=== PATIENT | female | born 1940 | race Caucasian/White ===

== ENCOUNTER 2018-06-14 17:30 | Inpatient (IN) | payer OTHER ==
[~2018-06-14] VITALS: Ht 160 cm; Wt 85.8 kg
[2018-06-14 17:53] LABS: HEMOGLOBIN 13.1 G/DL (11.9-15.5); MCH 27.9 PG (29.0-34.0); MCHC 33.6 G/DL (30.0-36.0); PLATELET COUNT 379 K/uL (156-360); RBC DIS.WIDTH-CV 15.8 % (11.8-14.6); RBC DIS.WIDTH-SD 47.7 % (39-53); WHITE BLOOD COUNT 11.2 K/uL (4.1-10.2)
[2018-06-14 18:02] LABS: ALBUMIN 3.6 g/dL (3.2-4.8)
[2018-06-14 18:03] LABS: CHLORIDE 99 mEq/L (99-109); POTASSIUM 3.4 mEq/L (3.7-5.4); SODIUM 137 mEq/L (136-147)
[2018-06-14 18:05] LABS: GLUCOSE 122 mg/dL (70-99)
[2018-06-14 18:07] LABS: TOTAL BILIRUBIN 2.2 mg/dL (0.0-1.0)
[2018-06-14 18:08] LABS: ALKALINE PHOSPHATASE 89 IU/L (3-129)
[2018-06-14 18:09] LABS: CREATININE 1.3 mg/dL (0.6-1.3); GFR ESTIMATE (CALCULATED) 42 mL/min/
[2018-06-14 18:10] LABS: AST (GOT) 32 IU/L (2-34); UREA NITROGEN (BUN) 31 mg/dL (9-23)
[2018-06-14 18:12] LABS: ALT (GPT) 70 IU/L (3-49); LIPASE 25 U/L (1.0-51.0)
[2018-06-14] MEDS ORDERED: ROSUVASTATIN CA10 MG PO (19:56)
[2018-06-14] MEDS ORDERED: DULOXETINE HCL60 MG PO (19:57)
[2018-06-14] MEDS ORDERED: ALENDRONATE SOD70 MG PO (19:58)
[2018-06-14] MEDS ORDERED: ALLOPURINOL100 MG PO (19:58)
[2018-06-14] MEDS ORDERED: LEVOTHYROXINE75 MCG PO (19:59)
[2018-06-14] MEDS ORDERED: LISINOPRIL40 MG PO (20:00)
[2018-06-14] MEDS ORDERED: VITAMIN D31000 UNI2 PO (20:01)
[2018-06-14] MEDS ORDERED: DICLOFENAC SODI75 MG PO (20:01)
[2018-06-14] MEDS ORDERED: LO-DOSE ASPIRIN81 M2 PO (20:02)
[2018-06-14 20:03] LABS: INTER. NORMALIZED RATIO 1.1
[2018-06-14 20:06] LABS: PTT 27.6 SEC (25-37)
[2018-06-15] VITALS (70 sets, daily range): BP systolic 65–138; BP diastolic 44–78
[2018-06-15 01:25] LABS: APPEARANCE SL.HAZY ((CLEAR)); BILIRUBIN NEGATIVE; BLOOD MODERATE; COLOR YELLOW ((YELLOW)); GLUCOSE (STRIP) NEGATIVE; KETONES 5; LEUKOCYTES NEGATIVE; NITRITE NEGATIVE; PROTEIN (STRIP) 100; UROBILINOGEN 0.2 MG/DL (0.2-1.0)
[2018-06-15 01:37] LABS: SPECIFIC GRAVITY > 1.060 (1.000-1.030)
[2018-06-15 01:46] LABS: BACTERIA RARE /HPF; EPITHELIAL CELLS 1+ /HPF; MUCUS TRACE /LPF; RED BLOOD CELLS 15-20 /HPF (0-5); WHITE BLOOD CELLS 0-5 /HPF (0-5)
[2018-06-15 02:30] LABS: COMMENTS - BLOOD GASES C+; DEVICE VENT; FI02 100 %; MECHANICAL RATE 12 resp/min; MODE AC; PEEP 5 CM/H20; SITE RR; TIDAL VOLUME 450 ML; TOTAL RESP RATE 12 resp/min
[2018-06-15 02:31] LABS: BASE EXCESS -5.1 mEq/L (-3 to +3); BICARBONATE 19.9 mEq/L (22-26); METHEMOGLOBIN 1.1 % (0-1.5); O2 SATURATION (CALCULATED) 97.3 % (95-99); PCO2 36 mm Hg (35-45); PO2 429 mm Hg (80-100); pH 7.35 (7.35-7.45)
[2018-06-15 02:32] LABS: HEMOGLOBIN 11.9 G/DL (11.9-15.5); MCH 27.8 PG (29.0-34.0); MCHC 33.1 G/DL (30.0-36.0); MCV 84.1 FL (83-99); PLATELET COUNT 266 K/uL (156-360); RBC DIS.WIDTH-CV 15.9 % (11.8-14.6); RBC DIS.WIDTH-SD 49.1 % (39-53); RED BLOOD COUNT 4.28 M/uL (3.80-5.20); WHITE BLOOD COUNT 9.2 K/uL (4.1-10.2)
[2018-06-15 03:11] LABS: POTASSIUM 3.8 mEq/L (3.7-5.4); SODIUM 138 mEq/L (136-147)
[2018-06-15 03:13] LABS: GLUCOSE 115 mg/dL (70-99)
[2018-06-15 03:17] LABS: CREATININE 0.9 mg/dL (0.6-1.3); GFR ESTIMATE (CALCULATED) > 59 mL/min/
[2018-06-15 03:18] LABS: CHLORIDE 109 mEq/L (99-109); UREA NITROGEN (BUN) 26 mg/dL (9-23)
[2018-06-15 05:58] LABS: ALBUMIN 2.3 G/DL (3.2-4.8); ALKALINE PHOSPHATASE 41 IU/L (3-129); ALT (GPT) 41 IU/L (3-49); AST (GOT) 48 IU/L (2-34); CHLORIDE 107 MEQ/L (99-109); CREATININE 0.9 MG/DL (0.6-1.3); GFR ESTIMATE (CALCULATED) > 59 mL/min/; GLUCOSE 123 mg/dL (70-99); MAGNESIUM 1.5 mg/dl (1.3-2.7); PHOSPHORUS 3.1 mg/dL (2.5-4.9); POTASSIUM 3.9 MEQ/L (3.7-5.4); SODIUM 137 MEQ/L (136-147); TOTAL BILIRUBIN 2.5 MG/DL (0.0-1.0); TOTAL PROTEIN 4.6 G/DL (6.4-8.3); UREA NITROGEN (BUN) 25 mg/dL (9-23)
[2018-06-15 06:27] LABS: HEMATOCRIT 35.9 % (36.0-46.0); HEMOGLOBIN 11.3 G/DL (11.9-15.5); MCH 27.1 PG (29.0-34.0); MCHC 31.5 G/DL (30.0-36.0); MCV 86.1 FL (83-99); RBC DIS.WIDTH-CV 16.1 % (11.8-14.6); RBC DIS.WIDTH-SD 50.5 % (39-53); RED BLOOD COUNT 4.17 M/uL (3.80-5.20)
[2018-06-15 07:30] LABS: ABS NEUTROPHIL COUNT 10.6; ANISOCYTOSIS 1+; BAND NEUTROPHILS 36.8 % (0-8.0); BURR CELLS 3+; EOSINOPHIL ABS CT 0; LYMPHOCYTES 7.9 % (15.0-45.0); METAMYELOCYTES 0.9 %; MONOCYTES 9.7 % (0-9.0); PLAT.SUFFICIENCY ADEQUATE; PLATELET COUNT 324 K/uL (156-360); POIKILOCYTOSIS 3+; SEG.NEUTROPHILS 44.7 % (46.0-76.0)
[2018-06-15 09:38] LABS: HEMATOCRIT 28.9 % (36.0-46.0); MCH 27.7 PG (29.0-34.0); MCHC 32.2 G/DL (30.0-36.0); PLATELET COUNT 238 K/uL (156-360); RBC DIS.WIDTH-CV 15.9 % (11.8-14.6); RBC DIS.WIDTH-SD 49.8 % (39-53); RED BLOOD COUNT 3.36 M/uL (3.80-5.20); WHITE BLOOD COUNT 11.5 K/uL (4.1-10.2)
[2018-06-15 09:39] LABS: HEMOGLOBIN 9.3 G/DL (11.9-15.5)
[2018-06-15 09:53] LABS: ABS NEUTROPHIL COUNT 8.7; ANISOCYTOSIS 1+; BAND NEUTROPHILS 21.7 % (0-8.0); BURR CELLS 2+; EOSINOPHIL ABS CT 0; LYMPHOCYTES 12.2 % (15.0-45.0); MACROCYTES 1+; MICROCYTOSIS 1+; MONOCYTES 5.2 % (0-9.0); OVALOCYTES 2+; PLAT.SUFFICIENCY ADEQUATE; POIKILOCYTOSIS 3+; SEG.NEUTROPHILS 53.9 % (46.0-76.0)
[2018-06-15 15:00] LABS: HEMATOCRIT 29.9 % (36.0-46.0); HEMOGLOBIN 9.7 G/DL (11.9-15.5); MCV 85.2 FL (83-99)
[2018-06-16] VITALS (22 sets, daily range): BP systolic 100–146; BP diastolic 57–94
[2018-06-16 00:38] LABS: HEMATOCRIT 30.4 % (36.0-46.0); MCH 27.5 PG (29.0-34.0); MCHC 32.9 G/DL (30.0-36.0); MCV 83.7 FL (83-99); PLATELET COUNT 303 K/uL (156-360); RBC DIS.WIDTH-CV 16.2 % (11.8-14.6); RBC DIS.WIDTH-SD 49.9 % (39-53); RED BLOOD COUNT 3.63 M/uL (3.80-5.20); WHITE BLOOD COUNT 17.5 K/uL (4.1-10.2)
[2018-06-16 06:10] LABS: HEMATOCRIT 34.1 % (36.0-46.0); HEMOGLOBIN 10.7 G/DL (11.9-15.5); MCH 27.3 PG (29.0-34.0); MCHC 31.4 G/DL (30.0-36.0); PLATELET COUNT 349 K/uL (156-360); RBC DIS.WIDTH-CV 16.3 % (11.8-14.6); RBC DIS.WIDTH-SD 52.5 % (39-53); RED BLOOD COUNT 3.92 M/uL (3.80-5.20); WHITE BLOOD COUNT 18.9 K/uL (4.1-10.2)
[2018-06-16 06:52] LABS: ALBUMIN 2.2 G/DL (3.2-4.8); ALKALINE PHOSPHATASE 50 IU/L (3-129); ALT (GPT) 33 IU/L (3-49); AST (GOT) 35 IU/L (2-34); CHLORIDE 106 MEQ/L (99-109); CREATININE 0.9 MG/DL (0.6-1.3); GFR ESTIMATE (CALCULATED) > 59 mL/min/; GLUCOSE 97 mg/dL (70-99); POTASSIUM 4.2 MEQ/L (3.7-5.4); SODIUM 141 MEQ/L (136-147); TOTAL PROTEIN 4.1 G/DL (6.4-8.3); UREA NITROGEN (BUN) 21 mg/dL (9-23)
[2018-06-16 06:53] LABS: CHLORIDE 106 MEQ/L (99-109); CREATININE 0.9 MG/DL (0.6-1.3); GFR ESTIMATE (CALCULATED) > 59 mL/min/; GLUCOSE 93 mg/dL (70-99); PHOSPHORUS 3.2 mg/dL (2.5-4.9); SODIUM 141 MEQ/L (136-147); UREA NITROGEN (BUN) 21 mg/dL (9-23)
[2018-06-16 07:01] LABS: TOTAL BILIRUBIN 3.1 MG/DL (0.0-1.0)
[2018-06-16 07:02] LABS: MAGNESIUM 2.2 mg/dl (1.3-2.7)
[2018-06-16 07:08] LABS: ABS NEUTROPHIL COUNT 13.8; ANISOCYTOSIS 1+; ATYPICAL LYMPHOCYTE 1.7 %; BAND NEUTROPHILS 20.9 % (0-8.0); BURR CELLS 1+; EOSINOPHIL ABS CT 0; LYMPHOCYTES 9.6 % (15.0-45.0); MONOCYTES 9.6 % (0-9.0); OVALOCYTES 1+; PLAT.SUFFICIENCY ADEQUATE; POIKILOCYTOSIS 1+; POLYCHROMASIA 1+; SEG.NEUTROPHILS 58.2 % (46.0-76.0)
[2018-06-16 07:29] LABS: ABS NEUTROPHIL COUNT 16.6; ANISOCYTOSIS 2+; BAND NEUTROPHILS 24.6 % (0-8.0); BURR CELLS 1+; EOSINOPHIL ABS CT 0; LYMPHOCYTES 5.3 % (15.0-45.0); MACROCYTES 1+; METAMYELOCYTES 0.9 %; MONOCYTES 6.1 % (0-9.0); OVALOCYTES 1+; PLAT.SUFFICIENCY INCREASED; POIKILOCYTOSIS 3+; POLYCHROMASIA 1+; SEG.NEUTROPHILS 63.1 % (46.0-76.0)
[2018-06-17 02:15] VITALS: BP 132/70
[2018-06-17 05:36] LABS: HEMATOCRIT 29.8 % (36.0-46.0); HEMOGLOBIN 9.3 G/DL (11.9-15.5); MCHC 31.2 G/DL (30.0-36.0); MCV 86.6 FL (83-99); PLATELET COUNT 354 K/uL (156-360); RBC DIS.WIDTH-CV 16.5 % (11.8-14.6); RBC DIS.WIDTH-SD 51.4 % (39-53); RED BLOOD COUNT 3.44 M/uL (3.80-5.20); WHITE BLOOD COUNT 19.1 K/uL (4.1-10.2)
[2018-06-17 06:16] LABS: CHLORIDE 107 MEQ/L (99-109); CREATININE 0.8 MG/DL (0.6-1.3); GFR ESTIMATE (CALCULATED) > 59 mL/min/; GLUCOSE 66 mg/dL (70-99); MAGNESIUM 2.1 mg/dl (1.3-2.7); POTASSIUM 3.5 MEQ/L (3.7-5.4); SODIUM 140 MEQ/L (136-147); UREA NITROGEN (BUN) 20 mg/dL (9-23)
[2018-06-17 07:01] LABS: ABS NEUTROPHIL COUNT 16.3; ANISOCYTOSIS 1+; BURR CELLS 3+; EOSINOPHIL ABS CT 0; LYMPHOCYTES 8.7 % (15.0-45.0); MONOCYTES 6.1 % (0-9.0); OVALOCYTES 1+; PLAT.SUFFICIENCY ADEQUATE; POIKILOCYTOSIS 3+
[2018-06-17 07:16] LABS: SEG.NEUTROPHILS 85.2 % (46.0-76.0)
[2018-06-17 08:40] VITALS: BP 174/86
[2018-06-17 08:58] LABS: ALBUMIN 2.2 G/DL (3.2-4.8); ALKALINE PHOSPHATASE 67 IU/L (3-129); ALT (GPT) 28 IU/L (3-49); AST (GOT) 32 IU/L (2-34); DIRECT BILIRUBIN 2.2 mg/dL (0.0-0.3); TOTAL BILIRUBIN 3.1 MG/DL (0.0-1.0); TOTAL PROTEIN 4.5 G/DL (6.4-8.3)
[2018-06-17 11:38] VITALS: BP 178/92
[2018-06-17 15:29] VITALS: BP 142/78
[2018-06-17 19:00] VITALS: BP 153/71
[2018-06-17 23:00] VITALS: BP 149/67
[2018-06-18 03:30] VITALS: BP 145/76
[2018-06-18 05:42] LABS: BASOPHIL (%) 0.5 % (0-1); BASOPHIL COUNT 0.1 K/uL (0-0.1); EOSINOPHIL (%) 0.3 % (0-5); EOSINOPHIL COUNT 0.1 K/uL (0-0.3); HEMATOCRIT 29.6 % (36.0-46.0); HEMOGLOBIN 9.5 G/DL (11.9-15.5); IMMATURE GRANULOCYTE (%) 4.4 % (0.0-0.7); LYMPHOCYTE (%) 9.5 % (15-42); LYMPHOCYTE COUNT 1.7 K/uL (1.0-2.8); MCH 27.2 PG (29.0-34.0); MCHC 32.1 G/DL (30.0-36.0); MCV 84.8 FL (83-99); MONOCYTE (%) 7.3 % (3-12); MONOCYTE COUNT 1.3 K/uL (0-0.8); NEUTROPHIL COUNT 13.6 K/uL (1.8-6.4); PLATELET COUNT 380 K/uL (156-360); RBC DIS.WIDTH-CV 16.5 % (11.8-14.6); RBC DIS.WIDTH-SD 51.4 % (39-53); RED BLOOD COUNT 3.49 M/uL (3.80-5.20); WHITE BLOOD COUNT 17.5 K/uL (4.1-10.2)
[2018-06-18 06:07] LABS: MAGNESIUM 2.1 mg/dl (1.3-2.7); PHOSPHORUS 1.8 mg/dL (2.5-4.9)
[2018-06-18 06:24] LABS: ALBUMIN 2.2 G/DL (3.2-4.8); ALKALINE PHOSPHATASE 73 IU/L (3-129); ALT (GPT) 25 IU/L (3-49); AST (GOT) 31 IU/L (2-34); CHLORIDE 107 MEQ/L (99-109); CREATININE 0.7 MG/DL (0.6-1.3); GFR ESTIMATE (CALCULATED) > 59 mL/min/; POTASSIUM 3.4 MEQ/L (3.7-5.4); SODIUM 143 MEQ/L (136-147); TOTAL BILIRUBIN 3.5 MG/DL (0.0-1.0); TOTAL PROTEIN 4.6 G/DL (6.4-8.3); UREA NITROGEN (BUN) 18 mg/dL (9-23)
[2018-06-18 06:30] LABS: GLUCOSE 99 mg/dL (70-99)
[2018-06-18 07:13] VITALS: BP 169/82
[2018-06-18 09:44] VITALS: BP 142/68
[2018-06-18 10:59] VITALS: BP 144/80
[2018-06-18 14:45] VITALS: BP 154/84
[2018-06-18 21:00] VITALS: BP 190/82
[2018-06-19 02:03] VITALS: BP 163/82
[2018-06-19 06:16] VITALS: BP 95/58
[2018-06-19 06:32] LABS: HEMATOCRIT 30.6 % (36.0-46.0); HEMOGLOBIN 9.9 G/DL (11.9-15.5); MCH 26.8 PG (29.0-34.0); MCHC 32.4 G/DL (30.0-36.0); MCV 82.9 FL (83-99); PLATELET COUNT 440 K/uL (156-360); RBC DIS.WIDTH-CV 16.5 % (11.8-14.6); RBC DIS.WIDTH-SD 50.1 % (39-53); RED BLOOD COUNT 3.69 M/uL (3.80-5.20); WHITE BLOOD COUNT 16.7 K/uL (4.1-10.2)
[2018-06-19 06:55] LABS: ALBUMIN 2.2 G/DL (3.2-4.8); ALKALINE PHOSPHATASE 83 IU/L (3-129); ALT (GPT) 24 IU/L (3-49); AST (GOT) 31 IU/L (2-34); CHLORIDE 108 MEQ/L (99-109); CREATININE 0.7 MG/DL (0.6-1.3); GFR ESTIMATE (CALCULATED) > 59 mL/min/; GLUCOSE 124 mg/dL (70-99); POTASSIUM 3.5 MEQ/L (3.7-5.4); SODIUM 145 MEQ/L (136-147); TOTAL BILIRUBIN 3.5 MG/DL (0.0-1.0); TOTAL PROTEIN 4.2 G/DL (6.4-8.3); UREA NITROGEN (BUN) 18 mg/dL (9-23)
[2018-06-19 06:55] LABS: MAGNESIUM 1.9 mg/dl (1.3-2.7); PHOSPHORUS 1.5 mg/dL (2.5-4.9)
[2018-06-19 07:56] LABS: ABS NEUTROPHIL COUNT 14.4; ANISOCYTOSIS 1+; ATYPICAL LYMPHOCYTE 0.9 %; BASOPHILS 1.7 %; BURR CELLS 1+; EOSINOPHIL ABS CT 0; LYMPHOCYTES 3.5 % (15.0-45.0); MACROCYTES 1+; MONOCYTES 7.8 % (0-9.0); PLAT.SUFFICIENCY INCREASED; POIKILOCYTOSIS 1+; SEG.NEUTROPHILS 86.1 % (46.0-76.0); SMUDGE CELLS 4.3; TARGET CELLS 1+
[2018-06-19 09:46] VITALS: BP 178/76
[2018-06-19 11:49] VITALS: BP 178/77
[2018-06-19 15:25] VITALS: BP 169/77
[2018-06-19 21:00] VITALS: BP 150/86
[2018-06-20] VITALS (7 sets, daily range): BP systolic 142–196; BP diastolic 76–98
[2018-06-20 05:52] LABS: ALBUMIN 2.2 G/DL (3.2-4.8); ALKALINE PHOSPHATASE 74 IU/L (3-129); ALT (GPT) 24 IU/L (3-49); AST (GOT) 31 IU/L (2-34); CHLORIDE 106 MEQ/L (99-109); CREATININE 0.6 MG/DL (0.6-1.3); GFR ESTIMATE (CALCULATED) > 59 mL/min/; GLUCOSE 115 mg/dL (70-99); POTASSIUM 3.5 MEQ/L (3.7-5.4); SODIUM 144 MEQ/L (136-147); TOTAL PROTEIN 4.2 G/DL (6.4-8.3); UREA NITROGEN (BUN) 15 mg/dL (9-23)
[2018-06-21] VITALS (7 sets, daily range): BP systolic 137–164; BP diastolic 67–88
[2018-06-21 05:32] LABS: HEMATOCRIT 28.8 % (36.0-46.0); HEMOGLOBIN 9.7 G/DL (11.9-15.5); MCHC 33.7 G/DL (30.0-36.0); MCV 80.2 FL (83-99); PLATELET COUNT 416 K/uL (156-360); RBC DIS.WIDTH-CV 16.3 % (11.8-14.6); RED BLOOD COUNT 3.59 M/uL (3.80-5.20); WHITE BLOOD COUNT 13.8 K/uL (4.1-10.2)
[2018-06-21 06:09] LABS: ALBUMIN 2.3 G/DL (3.2-4.8); ALKALINE PHOSPHATASE 75 IU/L (3-129); ALT (GPT) 22 IU/L (3-49); AST (GOT) 28 IU/L (2-34); CHLORIDE 105 MEQ/L (99-109); CREATININE 0.5 MG/DL (0.6-1.3); GFR ESTIMATE (CALCULATED) > 59 mL/min/; GLUCOSE 143 mg/dL (70-99); POTASSIUM 3.3 MEQ/L (3.7-5.4); SODIUM 140 MEQ/L (136-147); TOTAL PROTEIN 4.5 G/DL (6.4-8.3); UREA NITROGEN (BUN) 12 mg/dL (9-23)
[2018-06-21 06:12] LABS: TOTAL BILIRUBIN 2.2 MG/DL (0.0-1.0)
[2018-06-21 08:39] LABS: ABS NEUTROPHIL COUNT 11.1; ANISOCYTOSIS 1+; ATYPICAL LYMPHOCYTE 4.4 %; BAND NEUTROPHILS 5.3 % (0-8.0); BASOPHILS 1.7 %; EOSINOPHIL ABS CT 0; HYPOCHROMASIA 2+; LYMPHOCYTES 7.9 % (15.0-45.0); MACROCYTES 1+; MONOCYTES 5.3 % (0-9.0); OVALOCYTES 1+; PLAT.SUFFICIENCY INCREASED; POIKILOCYTOSIS 1+; SEG.NEUTROPHILS 75.4 % (46.0-76.0)
[2018-06-22 02:51] VITALS: BP 166/74
[2018-06-22 05:15] LABS: HEMATOCRIT 30.1 % (36.0-46.0); HEMOGLOBIN 10.1 G/DL (11.9-15.5); MCH 26.8 PG (29.0-34.0); MCHC 33.6 G/DL (30.0-36.0); MCV 79.8 FL (83-99); PLATELET COUNT 410 K/uL (156-360); RBC DIS.WIDTH-CV 16.6 % (11.8-14.6); RBC DIS.WIDTH-SD 46.5 % (39-53); RED BLOOD COUNT 3.77 M/uL (3.80-5.20); WHITE BLOOD COUNT 13.8 K/uL (4.1-10.2)
[2018-06-22 06:03] LABS: ALBUMIN 2.2 G/DL (3.2-4.8); ALKALINE PHOSPHATASE 86 IU/L (3-129); ALT (GPT) 23 IU/L (3-49); AST (GOT) 29 IU/L (2-34); CHLORIDE 104 MEQ/L (99-109); CREATININE 0.6 MG/DL (0.6-1.3); GFR ESTIMATE (CALCULATED) > 59 mL/min/; GLUCOSE 115 mg/dL (70-99); POTASSIUM 3.3 MEQ/L (3.7-5.4); SODIUM 141 MEQ/L (136-147); TOTAL BILIRUBIN 1.9 MG/DL (0.0-1.0); TOTAL PROTEIN 4.2 G/DL (6.4-8.3); UREA NITROGEN (BUN) 12 mg/dL (9-23)
[2018-06-22 07:18] LABS: ABS NEUTROPHIL COUNT 11.4; ANISOCYTOSIS 1+; EOSINOPHIL ABS CT 0.2; EOSINOPHILS 1.8 % (0-5.0); HYPOCHROMASIA 1+; LYMPHOCYTES 12.4 % (15.0-45.0); METAMYELOCYTES 0.9 %; MICROCYTOSIS 1+; MONOCYTES 2.6 % (0-9.0); PLAT.SUFFICIENCY INCREASED; POIKILOCYTOSIS 2+; SEG.NEUTROPHILS 82.3 % (46.0-76.0); SMUDGE CELLS 13.3
[2018-06-22 08:03] VITALS: BP 137/83
[2018-06-22] MEDS ORDERED: PROTONIX40 MG PO (11:13)
[2018-06-22] MEDS ORDERED: NIFEREX-150,FE150 MG PO (11:13)
[2018-06-22] MEDS ORDERED: NORVASC5 MG PO (11:13)
[2018-06-22] MEDS ORDERED: ULTRAM50 MG PO (11:14)
[2018-06-22 11:38] LABS: C DIFF TOXIN NEGATIVE (NEGATIVE)
== END 2018-06-22 13:59 | disposition home health service (06) | DRG 326 ==
LOC: EME 17:30 → ENRESERV 20:55 → EME 22:00 → SDC 22:14 → ENRESERV 06-15 01:24 → 4EAST 06-15 02:16 → 4WEST 06-15 02:16 → ENRESERV 06-16 14:14 → 4WEST 06-16 16:21 → 4EAST 06-16 18:04
PROVIDERS: Emergency Medicine; Internal Medicine Critical Care Medicine; Physician Assistant; Physician Assistant Surgical; Surgery
DX: K25.5 Chronic or unspecified gastric ulcer with perforation (principal); K65.9 Peritonitis, unspecified; D62 Acute posthemorrhagic anemia; K44.9 Diaphragmatic hernia without obstruction or gangrene; I10 Essential (primary) hypertension; M10.9 Gout, unspecified; E66.9 Obesity, unspecified; Z68.32 Body mass index [BMI] 32.0-32.9, adult; E03.9 Hypothyroidism, unspecified; J98.11 Atelectasis; K66.8 Other specified disorders of peritoneum; K31.1 Adult hypertrophic pyloric stenosis; F32.9 Major depressive disorder, single episode, unspecified; E78.5 Hyperlipidemia, unspecified; M19.90 Unspecified osteoarthritis, unspecified site; R17 Unspecified jaundice; E87.6 Hypokalemia
CPT/HCPCS: 36600; 71045; 74177; 78226; 80048; 80053; 80076; 81003; 82948; 83605; 83690; 83735; 84100; 85014; 85018; 85025; 85025 91; 85027; 85610; 85730; 86850; 86900; 86901; 87070; 87075; 87086; 87205; 87493; 87641; 93005; 94002; 94003; 94760; 94799; 99281; 99285; A9537; C1729; C9113; J0360; J1450; J1644; J2270; J2405; J2543; J2704; J3010; J3475; J3480; J7040; J7050; J7120; P9045